=== PATIENT | female | born 1960 | race African-American/Black ===

== ENCOUNTER 2016-08-19 11:58 | Emergency (ER) | payer OTHER ==
--- NOTE | ~2016-08-19 | EKG ---
PATIENT: LUZ MARIA PEREZ UNIT #: [id number] Ventricular Rate: 68 BPM Atrial Rate: 68 BPM P-R Interval: 168 ms QRS Duration: 86 ms Q-T Interval: 396 ms QTC Calculation(Bezet): 421 ms P [place]: 57 degrees Calculated R [place]: -33 degrees Calculated T [place]: 4 degrees Diagnosis Line: Normal sinus rhythm Diagnosis Line: Left axis deviation Diagnosis Line: Abnormal ECG Diagnosis Line: No previous ECGs available Diagnosis Line: Confirmed by GERARDO CAMPO MD ([id number]) on 08/21/2016 Diagnosis Line: 4:25:54 PM INTERPRETING MD: JAHAIRA LIVE
--- NOTE | ~2016-08-19 | CT71 ---
[facility] A Service of [facility] RADIOLOGY TEXT RESULTS PATIENT: LUZ MARIA PEREZ LOCATION: [facility] : 64 UNIT #: [id number] AGE: [address]: Paul Liang MD SEX: F ORDER DR: [id number] [facility] [address] [place], [place] [address] [id number] MR#: [id number] Acc #: [id number] NAME: LUZ MARIA PEREZ : 1960 SEX: F STUDY DATE/TIME: 08/19/2016 13:53 UNIT: DIONY ROOM: STUDY DESCRIPTION: CT Head Wo Contrast Attending Physician: Paul Liang M.D. Ordering Physician: Paul Liang M.D. MEDICAL IMAGING REPORT This report is preliminary unless electronic signature is present EXAM CT head without contrast 08/19/2016 HISTORY Dizziness, nausea today. COMPARISON Noncontrast CT head 11/21/2013. TECHNIQUE This CT exam was performed with one or more of the following radiation dose reduction techniques: automatic exposure control, adjustment of mA and/or kV according to patient size, and iterative reconstruction. FINDINGS No acute intracranial hemorrhage, mass lesion, mass effect, midline shift is seen. There is no CT evidence of acute or evolving infarct. There is a normal configuration of the ventricles. 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 Very mild bilateral ethmoid sinus mucosal thickening. Mastoid air cells are clear. No acute calvarial abnormality is identified. IMPRESSION 1. No acute intracranial findings. Dictated by... Alessia Benedict M.D. THIS IS AN ELECTRONICALLY VERIFIED REPORT Alessia Benedict M.D. at 08/22/2016 9:29 AM [facility] A Service [facility] RADIOLOGY TEXT RESULTS PATIENT: LUZ MARIA PEREZ LOCATION: [facility] : 64 UNIT #: [id number] AGE: [address]: Paul Liang MD SEX: F ORDER DR: TD: 08/19/2016 16:44 JOB #: [id number] MEDICAL IMAGING REPORT Page 1 of 1 COPY
--- NOTE | ~2016-08-19 | CR72 ---
[facility] A Service of [facility] RADIOLOGY TEXT RESULTS PATIENT: LUZ MARIA PEREZ LOCATION: [facility] : 64 UNIT #: [id number] AGE: [address]: Paul Liang MD SEX: F ORDER DR: [id number] [facility] [address] [place], [place] [address] [id number] E MR#: [id number] Acc #: [id number] NAME: LUZ MARIA PEREZ : 1960 SEX: F STUDY DATE/TIME: 08/19/2016 12:28 UNIT: [facility] ROOM: STUDY DESCRIPTION: CR Chest Single View Portable Attending Physician: Paul Liang M.D. Ordering Physician: Paul Liang M.D. Primary Care Physician: Primary Care Physician No MEDICAL IMAGING REPORT This report is preliminary unless electronic signature is present EXAM Chest portable, 08/19/2016 12:28 hours HISTORY 55-year-old with nausea, dizziness and shortness of air today. COMPARISON None FINDINGS Portable upright chest demonstrates normal cardiac, mediastinal and hilar contours. The lungs are clear. There is no effusion, pneumothorax or free air in the abdomen. IMPRESSION No acute cardiopulmonary findings. No free air seen in the abdomen. Dictated by... Keila Cuenca M.D. THIS IS AN ELECTRONICALLY VERIFIED REPORT Keila Cuenca M.D. at 08/19/2016 3:51 PM Rusty TD: 08/19/2016 14:13 JOB #: [id number] MEDICAL IMAGING REPORT Page 1 of 1 COPY
[~2016-08-19 11:58] MED LIST: CHOLESTEROL MED; LISINOPRIL PO; MOTRIN600 M2 PO
[2016-08-19 12:35] LABS: URINE SOURCE CLEAN CATCH
[2016-08-19 12:46] LABS: URINE APPEARANCE CLOUDY; URINE BILIRUBIN NEG (NEG); URINE BLOOD 1+ (NEG); URINE COLOR DK YELLOW; URINE GLUCOSE NEG (NEG); URINE KETONE TRACE (NEG); URINE LEUKOCYTE ESTERASE TRACE (NEG); URINE NITRATE NEG (NEG); URINE PH 5.5 (5-8); URINE PROTEIN TRACE (NEG); URINE SPECIFIC GRAVITY 1.034 (1.003-1.035)
[2016-08-19 12:48] LABS: CULTURE INDICATED? YES; URINE BACTERIA AUWI 2+ (NEGATIVE); URINE SQUAMOUS EPITHELIAL CELL MANY /[HPF]
[2016-08-19 12:58] LABS: BASOPHIL% 0.7 % (0-2.5); EOSINOPHIL# 0.1 X10e3 (0-0.7); EOSINOPHIL% 1.6 % (0.0-7.0); HEMATOCRIT 43.1 % (35.0-45.0); LYMPHOCYTE# 2.3 X10e3 (1.0-3.5); MEAN CORPUSCULAR HEMOGLOBIN 22.1 PG (28-34); MEAN CORPUSCULAR HGB CONC 30.3 g/dL (30-36); MEAN PLATELET VOLUME 8.2 FL (6.5-11.5); MONOCYTE# 0.4 X10e3 (0-1.0); MONOCYTE% 6.5 % (3.0-12.0); NEUTROPHIL# 3.9 X10e3 (1.5-7.1); NEUTROPHIL% 57.2 % (40-75); PLATELET COUNT 306 X10e3 (140-420); RED CELL DISTRIBUTION WIDTH 14.9 % (11.0-15.5); WHITE BLOOD COUNT 6.8 X10e3 (4.0-10.5)
[2016-08-19 13:00] LABS: DIFF IND NO
[2016-08-19 13:02] LABS: URBCS1 AUWI 0-2 /[HPF] (0-2)
[2016-08-19 13:06] LABS: POC - CKMB 1.2 ng/mL (0.0-7.9); POC - TROPONIN <0.05 ng/mL (<=0.05)
[2016-08-19 13:24] LABS: ALBUMIN SERUM 4.1 g/dL (3.5-5.0); ALKALINE PHOSPHATASE 94 U/L (32-92); ALT (SGPT) 38 U/L (10-40); AST (SGOT) 36 U/L (10-42); BILIRUBIN,TOTAL 0.8 mg/dL (0.2-2.0); BLOOD UREA NITROGEN 13 mg/dL (9-23); BUN/CREATININE RATIO 14.44; CALCIUM SERUM 8.9 mg/dL (8.4-10.2); CARBON DIOXIDE 27 mmol/L (22-31); CHLORIDE 99 mmol/L (100-111); CREATININE SERUM 0.9 mg/dL (0.6-1.4); GLOM FILT RATE Estimated 84.7 mL/min (>60); GLUCOSE FASTING 108 mg/dL (70-110); PROTEIN TOTAL SERUM 7.2 g/dL (6.0-8.3); SODIUM 135 mmol/L (135-145)
[2016-08-19 13:29] LABS: BILIRUBIN, DIRECT <0.1 mg/dL (0.0-0.2); BILIRUBIN,INDIRECT 0.7 mg/dL (0.0-0.9); POTASSIUM 2.6 mmol/L (3.5-5.1)
[2016-11-04] MEDS ORDERED: LIPITOR40 MG PO (07:49)
[2016-11-04] MEDS ORDERED: LISINOPRIL30 MG PO (07:50)
[2016-11-04] MEDS ORDERED: ASPIRIN81 M2 PO (07:50)
[2016-11-04] MEDS ORDERED: ZESTORETIC 10-1 EAC1 PO (07:51)
[2016-11-04] MEDS ORDERED: ROBAXIN 750750 M1 PO (07:51)
[2016-11-04] MEDS ORDERED: FENOFIBRATE134 MG PO (07:52)
[2016-11-04] MEDS ORDERED: FERROUS SULFAT325 MG PO (07:52)
== END 2016-08-19 15:00 | disposition home or self-care (01) ==
LOC: CED 11:58
PROVIDERS: Emergency Medicine
DX: E87.6 Hypokalemia (principal); N39.0 Urinary tract infection, site not specified; I10 Essential (primary) hypertension; Z88.8 Allergy status to other drugs, medicaments and biological substances
CPT/HCPCS: 36415; 70450; 71010; 80048; 80076; 81003; 82553; 82947; 84484; 85025; 87086; 93005; 96361; 96365; 96374; 99284; J2405; J3475

== ENCOUNTER → 2016-11-04 | Day surgery (SDC) | payer OTHER ==
[~2016-11-04] MED LIST changes: +ASPIRIN81 M2 PO; +FENOFIBRATE134 MG PO; +FERROUS SULFAT325 MG PO; +LIPITOR40 MG PO; +LISINOPRIL30 MG PO; +ROBAXIN 750750 M1 PO; +ZESTORETIC 10-1 EAC1 PO
--- NOTE | ~2016-11-04 | OR ---
Unit #: [id number] #: [id number] Patient: LUZ MARIA PEREZ [id number] [place] [id number] O MR#: [id number] NAME: LUZ MARIA PEREZ ROOM: Date of Procedure: 11/04/2016 Admission Date: 11/04/2016 Surgeon: Choco Kim M.D. : 1960 Attending Physician: Choco Kim M.D. Primary Care Physician: Primary Care Physician No OPERATIVE REPORT PROCEDURES PERFORMED Esophagogastroduodenoscopy with biopsy and colonoscopy to cecum. INDICATIONS Iron-deficiency anemia, undergoing evaluation with upper endoscopy and colonoscopy. MEDICATIONS Monitored anesthesia. POSTOPERATIVE FINDINGS 1. Small hiatal hernia. 2. Normal stomach. Biopsies taken looking for H. pylori. 3. Normal duodenum and distal duodenum. 4. Colonoscopy completed to cecum. Prep was good. No polyps, masses, or colitis. 5. Small hemorrhoids. PLAN Follow up on pathology report. Continue to watch H and H. If there is further drop, consider capsule endoscopy. DESCRIPTION OF PROCEDURE The patient was explained of the procedure, risks, and benefits along with the risks and benefits of anesthesia. She was brought to the endoscopy room. Propofol anesthesia was given. Bite block was placed. The scope was passed down the mouth into the esophagus, stomach, duodenum, and distal duodenum. Findings as described. Biopsies taken. Gently, I pulled the scope out of the patient's mouth. She tolerated it well. At this time, she was turned around and repositioned for colonoscopy. Rectal exam was done, which was normal. Colonoscope was lubricated, passed up the rectum, advanced under direct vision all the way to the cecum. Cecum was identified by ileocecal valve and appendiceal orifice. As I started to pull the scope out carefully looking, no polyps, masses, or colitis. Mucosa was normal and healthy. I retroflexed in the rectum, small hemorrhoids were seen. The scope was gently pulled out. She tolerated it well. Dictated by... Unit #: [id number] #: [id number] Patient: LUZ MARIA PEREZ Armaan Chacko/kevin TD: 11/04/2016 15:47 JOB #: [id number] CC: Sheela Diaz A.P.R.N. OPERATIVE REPORT Page 1 of 1 X Choco Kim MD PROCEDURE OPERATIVE NOTE
== END | disposition home or self-care (01) ==
LOC: COPS 07:14
DX: D50.9 Iron deficiency anemia, unspecified (principal); K44.9 Diaphragmatic hernia without obstruction or gangrene; K64.9 Unspecified hemorrhoids; R73.03 Prediabetes; E66.9 Obesity, unspecified; I10 Essential (primary) hypertension; E78.5 Hyperlipidemia, unspecified; Z88.6 Allergy status to analgesic agent; Z79.82 Long term (current) use of aspirin; Z79.899 Other long term (current) drug therapy
CPT/HCPCS: 88305; 88312; J2250